=== PATIENT | male | born 1975 | race African-American/Black ===

== ENCOUNTER 2016-10-01 14:26 | Emergency (ER) | payer SELFPAY ==
[~2016-10-01] VITALS: Ht 185.4 cm; Wt 90.7 kg
[2016-10-01 15:06] VITALS: BP 147/107
--- NOTE | 2016-10-01 15:32 | PHYS DOC ---
Past Medical History Past Medical History: No Pertinent History Past Surgical History: No Surgical History Additional Information: nonsmoker Alcohol Use: Occasionally Drug Use: Marijuana Adult General Chief Complaint Chief Complaint: BACK PAIN - NO INJURY [facility] HPI Patient is a 41 year old male who presents with right-sided mid-back pain starting yesterday. He denies any injury to his back. There is no radiation of the pain. The pain is worse with movement. He denies shortness of breath, cough , fever, urinary symptoms, weakness, or numbness. 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 He took Aleve at 1430 today. He does not have a PCP. Review of Systems Review of Systems Constitutional: Denies fever or chills. [] Respiratory: Denies cough or shortness of breath. [] Cardiovascular: Denies chest pain, palpitations or edema. [] GI: Denies abdominal pain, nausea, vomiting, bloody stools or diarrhea. [] : Denies dysuria, hematuria or urinary frequency. [] Musculoskeletal: Denies joint pain. Reports back pain. Integument: Denies rash or skin lesions. [] Neurologic: Denies headache, focal weakness or sensory changes. [] All systems reviewed and negative unless otherwise stated in the HPI. Physical Exam Physical Exam Constitutional: Well developed, well nourished, no acute distress, non-toxic appearance. [] HENT: Normocephalic, atraumatic, oropharynx moist. [] Eyes: PERRLA, EOMI, conjunctiva normal, no discharge. [] Neck: Normal range of motion, no tenderness, supple, no stridor. [] Cardiovascular: Heart rate regular rhythm, no murmur. [] Lungs & Thorax: Bilateral breath sounds clear to auscultation without wheezes, rales, or rhonchi. [] Abdomen: Bowel sounds normal, soft, no tenderness, no masses, no pulsatile masses. [] Skin: Warm, dry, no erythema, no rash. [] Back: No midline tenderness, no CVA tenderness. There is no tenderness on palpation, but the patient reports pain in the right CVA region and right flank. Extremities: No tenderness, ROM intact, no edema. Distal pulses equal bilaterally. [] Neurologic: Alert and oriented X 3, normal motor function, normal sensory function, no focal deficits noted. [] Psychologic: Affect normal, judgement normal, mood normal. [] Current Patient Data Vital Signs Vital Signs Date Time Temp Pulse Resp B/P Pulse Ox O2 Delivery O2 Flow Rate FiO2 10/01/16 15:06 97.6 74 18 98 Room Air 97.6 Lab Values Laboratory Tests Test 10/01/16 15:33 Urine Collection Type Unknown Urine Color Yellow Urine Clarity Clear Urine pH 6.0 Urine Specific [place] 1.020 Urine Protein Negativemg/dL (NEG-TRACE) Urine Glucose (UA) Negativemg/dL (NEG) Urine Ketones (Stick) Negativemg/dL (NEG) Urine Blood Negative (NEG) Urine Nitrite Negative (NEG) Urine Bilirubin Negative (NEG) Urine Urobilinogen Dipstick 1.0mg/dL (0.2 mg/dL) Urine Leukocyte Esterase Negative (NEG) Urine RBC 0/HPF (0-2) Urine WBC 0/HPF (0-4) Urine Bacteria 0/HPF (0-FEW) Urine Mucus Mod/LPF EKG EKG [] Radiology/Procedures Radiology/Procedures [] Course & Med Decision Making Course & Med Decision Making Pertinent Labs and Imaging studies reviewed. (See chart for details) The patient presents with atraumatic mid-back pain on the right side. On exam, there is no tenderness, but he reports pain in the right CVA region and right flank. Urine is unremarkable for infection or blood. He is discharged home with prescription for Robaxin and Tylenol #3. He is given contact information for primary care providers for follow up. Return precautions were discussed. He verbalizes understanding and agrees with plan. Dragon Disclaimer Dragon Disclaimer This electronic medical record was generated, in whole or in part, using a voice recognition dictation system. Departure Departure Impression: Primary Impression: Back pain Additional Impression: Flank pain Disposition: 01 HOME, SELF-CARE Condition: STABLE Referrals: NO PCP (PCP) Patient Instructions: Back Pain, Adult, [id number], Flank Pain, [id number] Additional Instructions: Your urine does not show infection or blood. Please take the prescribed medications as directed. Do not drive or operate heavy machinery while taking these medications. Please follow up with a primary care provider if your pain continues. Return to the emergency department if you have any new or concerning symptoms. Scripts Methocarbamol (Robaxin)500 Mg [id number] Mg PO QID #20 TAB Prov:LEOBARDO GARCIA 10/01/16 Acetaminophen With Codeine (Tylenol With Codeine #3 Tablet)1 Each Tablet1 Tab PO PRN Q6HRS PRN PAIN #20 TAB Prov:LEOBARDO GARCIA 10/01/16 Problem Qualifiers Primary Impression: Back pain Back pain location: thoracic back pain Chronicity: acute Back pain laterality: right Qualified Code: M54.6 - Pain in thoracic spine LEOBARDO GARCIA Oct 01, 2016 15:32
[2016-10-01 15:50] LABS: BACTERIA,URINE 0 /HPF (0-FEW); BILIRUBIN,URINE NEGATIVE (NEG); GLUCOSE,URINE NEGATIVE (NEG); NITRITE,URINE NEGATIVE (NEG); PROTEIN,URINE NEGATIVE (NEG-TRACE); RBC,URINE 0 /HPF (0-2); WBC,URINE 0 /HPF (0-4)
[2016-10-01] MEDS ORDERED: METH-37 PO (15:57)
[2016-10-01] MEDS ORDERED: ACET-704 PO (15:57)
== END 2016-10-01 16:03 | disposition home or self-care (01) ==
LOC: ER 14:26
DX: M54.6 Pain in thoracic spine (principal); R10.9 Unspecified abdominal pain; F12.10 Cannabis abuse, uncomplicated
CPT/HCPCS: 81001; 99283